=== PATIENT | male | born 1990 | race Caucasian/White ===

== ENCOUNTER 2018-11-04 20:31 | Emergency (ER) | payer OTHER, MEDICAID, SELFPAY ==
[2018-11-04 20:38] VITALS: BP 138/92; PULSE 79; RESP 15; TEMP 36.7; O2SAT 98; BMI 22.7
--- NOTE | 2018-11-04 20:48 | ED.SKABFB ---
HPI - Skin/Abscess/Foreign Bdy <CHRISTA Larson - Last Filed: 11/04/18 22:07> General Chief complaint: Skin/Abscess/Foreign Body Stated complaint: BLEEDING S/P SKIN TAG REMOVAL Time Seen by Provider: 11/04/18 20:47 Source: patient Mode of arrival: ambulatory Limitations: no limitations History of Present Illness HPI narrative: A 28-year-old healthy male that is an everyday smoker for complaint of bleeding to excision site to his anterior abdomen since this afternoon. He was seen in the walk-in clinic earlier today and had an excision of a skin tag done he reports that he got home and he started bleeding he was having a hard time having a stop. Bleeding is controlled with direct pressure. He denies any bleeding disorders. He does state that he probably takes 2-4 Tylenol or Advil daily. he denies any trauma to the area. No other concerns or complaints at this timeframe. Related Data Home Medications Medication Instructions Recorded Confirmed No Known Home Medications 11/04/18 11/04/18 Allergies Allergy/AdvReac Type Severity Reaction Status Date / Time No Known Drug Allergies Allergy Verified 11/04/18 20:43 Review of Systems <CHRISTA Larson - Last Filed: 11/04/18 22:07> Constitutional Denies chills, Denies fever(s), Denies lethargy and Denies weakness Eyes Denies change in vision, Denies eye discharge, Denies irritation and Denies loss of vision ENT Ears, Nose, Mouth, and Throat: Denies change in voice, Denies neck pain and Denies sore throat Cardiovascular Denies chest pain, Denies irregular heart rhythm, Denies lightheadedness, Denies palpitations, Denies dyspnea, Denies dyspnea on exertion and Denies orthopnea Respiratory Denies cough, Denies dyspnea, Denies dyspnea on exertion and Denies wheezing Gastrointestinal Gastrointestinal: Denies abdominal pain, Denies change in bowel habits, Denies diarrhea, Denies nausea and Denies vomiting Genitourinary Denies hematuria, Denies flank pain, Denies urinary incontinence and Denies urinary urgency Musculoskeletal Denies neck pain Integumentary/Breasts Comments: Bleeding from excision site of skin tag from earlier today Neurologic Denies loss of vision and Denies weakness Endocrine Denies palpitations Hematologic/Lymphatic Denies easy bruising Allergic/Immunologic Denies wheezing PFSH <CHRISTA Larson - Last Filed: 11/04/18 22:07> Social History Smoking Status: Current every day smoker Social History Smoking Status: Current every day smoker Exam <CHRISTA Larson - Last Filed: 11/04/18 22:07> Initial Vital Signs Initial Vital Signs: Vital Signs Temperature 98.0 F 11/04/18 20:38 Pulse Rate 79 11/04/18 20:38 Respiratory Rate 15 11/04/18 20:38 Blood Pressure 138/92 H 11/04/18 20:38 Pulse Oximetry 98 11/04/18 20:38 Const General: cooperative and well developed Nutritional Appearance: well nourished Orientation: alert, awake, oriented x3 and not confused HENMT Mouth: oral mucosae normal and moist mucous membranes Eyes Conjunctivae: conjunctivae normal Sclera: sclerae normal Pupils: PERRL EOM: EOM intact bilaterally Resp Effort & Inspection: normal respiratory effort, able to speak in complete sentences, no respiratory distress and no use of accessory muscles Auscultation: clear to auscultation bilaterally, no rales, no rhonchi and no wheezes Cardio Rate: regular rate Rhythm: regular rhythm Heart Sounds: no click, no gallops, no murmurs and no rubs Pulses: normal peripheral pulses GI Inspection: non-distended Palpation: soft, no hepatosplenomegaly, No guarding, No pulsatile mass and No tender Auscultation: normal bowel sounds Other: 4 mm excision site to anterior right lower quadrant small amount of bleeding from the area when direct pressure is taken off. No swelling no signs of infection. No discoloration Skin General: no rashes or lesions noted, No jaundice and No petechiae Neuro General: alert, oriented x3, gait normal and no focal motor deficits Speech: speech normal <Natasha Perez DO - Last Filed: 11/05/18 02:09> Initial Vital Signs Initial Vital Signs: Vital Signs Temperature 98.0 F 11/04/18 20:38 Pulse Rate 79 11/04/18 20:38 Respiratory Rate 15 11/04/18 20:38 Blood Pressure 138/92 H 11/04/18 20:38 Pulse Oximetry 98 11/04/18 20:38 Course <CHRISTA Larson - Last Filed: 11/04/18 22:07> Vital Signs - 8 hr 11/04/18 20:38 11/04/18 21:36 Temperature 98.0 F Pulse Rate 79 83 Respiratory Rate 15 15 Blood Pressure 138/92 H Blood Pressure [Left Arm] 131/88 Pulse Oximetry 98 99 <Natasha Perez DO - Last Filed: 11/05/18 02:09> Vital Signs - 8 hr 11/04/18 20:38 11/04/18 21:36 Temperature 98.0 F Pulse Rate 79 83 Respiratory Rate 15 15 Blood Pressure 138/92 H Blood Pressure [Left Arm] 131/88 Pulse Oximetry 98 99 MDM - Skin/Abscess/Foreign Bdy <CHRISTA Larson - Last Filed: 11/04/18 22:07> MDM Narrative Medical decision making narrative: Surgicel was applied to the excision site with direct pressure. Bleeding was then stopped. Wound is dressed with a dressing follow up with primary care provider next few days for re-evaluation. Limit any strenuous activity to reduce chance of a breaking clot. For any worsening symptoms or bleeding return to the emergency room. Discharge Plan Departure Patient Disposition: Home Clinical Impression: Uzma Discharge Date/Time: 11/04/18 21:44 Interventions: ED Discharge Assessment Last Done: 11/04/18 21:43 Instructions: DI for Post-Surgical Bleeding Activity Restrictions/Additional Instructions: bleeding has now stopped. Limit activity that can break the clot and started bleeding again. Follow up with her primary care provider. Use [id number] Tylenol or Motrin as needed for any discomfort. For any worsening symptoms return to the emergency room. Prescriptions: No Action No Known Home Medications RF: 0 Referrals: [facility] [Provider Group] <Natasha Perez DO - Last Filed: 11/05/18 02:09> Cosign ED Attending Corin Attestation: I was immediately available in the department for consultation. Documentation has been reviewed. I agree with assessment and plan.
--- NOTE | 2018-11-04 20:58 | PC.NURSE ---
Had skin tag removed today,oozing blood from site.
[2018-11-04 21:36] VITALS: BP 131/88; PULSE 83; RESP 15; O2SAT 99
== END 2018-11-04 21:44 | disposition home or self-care (01) ==
PROVIDERS: Emergency Provider Nurse Practitioner Family
DX: L91.8 Other hypertrophic disorders of the skin (principal)
CPT/HCPCS: 99282